=== PATIENT | male | born 1985 | race Caucasian/White ===

== ENCOUNTER 2020-10-01 20:36 | Emergency (ER) | payer SELFPAY ==
[~2020-10-01] VITALS: Ht 172.7 cm; Wt 68.0 kg
[2020-10-01 20:43] VITALS: BP 143/79
--- NOTE | 2020-10-01 20:43 | NUR ---
TO BED AMBULATORY
[2020-10-01 20:55] VITALS: BP 143/79
--- NOTE | 2020-10-01 20:55 | NUR ---
PT NOT IN ROOM.
--- NOTE | 2020-10-01 20:55 | NUR ---
PATIENT LEFT WITHOUT BEING SEEN BY DR. SAINI. NO FURTHER CARE PROVIDED FOR PATIENT.
== END 2020-10-01 20:55 | disposition left against medical advice (07) ==
LOC: MED 20:36
DX: R10.9 Unspecified abdominal pain (principal); Z53.21 Procedure and treatment not carried out due to patient leaving prior to being seen by health care provider